=== PATIENT | male | born 2000 | race Caucasian/White ===

== ENCOUNTER 2020-03-17 01:18 | Emergency (ER) | payer SELFPAY ==
[2020-03-17 01:18] VITALS: BP 148/78; PULSE 98; RESP 20; TEMP 36.9; O2SAT 100
[2020-03-17 01:51] LABS: Influenza Control Valid (Valid)
--- NOTE | 2020-03-17 02:15 | ED.URI ---
HPI - URI/Sore Throat General Chief Complaint: Upper Respiratory Infection Stated Complaint: Fever Source: patient Mode of arrival: ambulatory Limitations: no limitations History of Present Illness HPI Narrative: Pt has a cough, mild sore throat, runny nose and fever. He tells me he had a fever over 100 prior to arrival. He took 4 motrin. He states he has been sneezing and has itchy watery eyes. He has had COVID swabs before, and thinks he needs tested again. MD elicited complaint: fever, cough, sore throat, rhinorrhea and nasal congestion Pertinent past history: seasonal allergies (denies this) Onset (ago): day(s) Able to tolerate fluids by mouth: Yes Exacerbating factors: nothing Relieving factors: nothing Associated symptoms: fever, myalgias, headache, rhinorrhea, nasal congestion, sore throat and cough Treatments prior to arrival: ibuprofen Related Data Home Medications Medication Instructions Recorded Confirmed No Home Medications 03/17/20 03/17/20 Review of Systems Constitutional: Constitutional: Reports chills, Denies fatigue, Reports fever(s) and Denies weakness Eyes: Eyes: Reports no additional eye complaints ENT: Reports as per HPI, Denies dysphagia, Denies dizziness, Denies epistaxis, Reports nasal congestion and Reports sore throat Cardiovascular: Cardiovascular: Reports no additional cardiovascular complaints Respiratory: Respiratory: Denies chest congestion, Reports cough, Denies dyspnea and Denies wheezing Gastrointestinal: Gastrointestinal: Reports no additional gastrointestinal complaints Genitourinary: Genitourinary: Reports no additional male genitourinary complaints Musculoskeletal: Musculoskeletal: Reports no additional musculoskeletal complaints Integumentary/Breasts: Skin/Breast: Reports system reviewed and no additional complaints, except as docu Neurologic: Reports system reviewed and no additional complaints, except as documented Psychiatric: Psychiatric: Reports no additional psychiatric complaints Endocrine: Endocrine: Reports no additional endocrine complaints Hematologic/Lymphatic: Hematologic/Lymphatic: Reports no additional hematologic/lymphatic complaints Allergic/Immunologic: Allergic/Immunologic: Reports no additional allergic/immunologic complaints [facility] Social History Social History (Updated 03/17/20 @ 02:19 by Aruna Garcia MD) Smoking status: Current every day smoker Alcohol intake: current Substance use: never Additional occupation/education comments: factory Exam Const: General: no acute distress and alert Nutritional Appearance: well nourished and obese Orientation/consciousness: patient oriented x3 HENMT: Head: normal to inspection Eyes: Conjunctivae: conjunctivae normal Pupils: Equal, round and reactive pupils present Neck: Neck: normal visual inspection Chest: Chest palpation & inspection: normal inspection of the chest Resp: Effort & Inspection: normal respiratory effort Auscultation: clear to auscultation bilaterally Cardio: Rate: regular rate Rhythm: regular rhythm GI: GI Palp: Yes Soft to palpation, No Tenderness to palpation present (GI) and No Guarding due to palpation present (GI) Auscultation: normal bowel sounds Skin: General skin exam: normal color Rashes: no rashes Neuro: General: patient oriented x3, moves all extremities, no meningeal signs and no focal motor deficits Speech: normal speech Extrem: General: normal to inspection Psych: Appearance: grossly normal Mental Status: mental status grossly normal Thought content: Yes Normal thought content present Course Vital Signs Vital signs: Vital Signs Temperature 36.9 C 03/17/20 01:18 Pulse Rate 98 03/17/20 01:18 Respiratory Rate 20 03/17/20 01:18 Blood Pressure 148/78 H 03/17/20 01:18 Pulse Oximetry 100 03/17/20 01:18 Temperature 36.9 C 03/17/20 01:18 Pulse Rate 98 03/17/20 01:18 Respiratory Rate 20 03/17/20 01:18 Bl
[2020-03-17 02:40] VITALS: TEMP 36.9
[2020-03-18 00:43] LABS: SARS-CoV-2 RNA PCR Negative
== END 2020-03-17 02:35 | disposition home or self-care (01) ==
PROVIDERS: Emergency Provider Emergency Medicine; PCP Internal Medicine
DX: J06.9 Acute upper respiratory infection, unspecified (principal); Z20.828 Contact with and (suspected) exposure to other viral communicable diseases
CPT/HCPCS: 87635; 87804; 99283; C9803; U0003